=== PATIENT | female | born 1965 | race Caucasian/White ===

== ENCOUNTER 2024-05-24 10:16 | Emergency (ER) | payer BC, OTHER, SELFPAY ==
[2024-05-24 10:17] VITALS: BMI 23.4
[2024-05-24 10:34] VITALS: BP 190/130
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
[2024-05-24] MEDS: PERCOCET 5/325 2 TABLET PO (11:35)
[2024-05-24 13:29] VITALS: BP 207/108
[2024-05-24] MEDS: ZOFRAN 4 MG IV (13:41)
[2024-05-24] MEDS: TRANDATE 10 MG IV (13:41)
[2024-05-24 13:51] LABS: % Basophils 0.8 % (0-2); % Eosinophils 1.1 % (0-6); % Immature Granulocytes 0.5 % (0-0.5); % Lymphocytes 21.9 % (20.5-51.1); % Monocytes 10.3 % (1.7-9.3); % Neutrophils 65.4 % (42.2-75.2); Absolute Basophils 0.1 10^3/uL (0-0.2); Absolute Eosinophils 0.1 10^3/uL (0-0.7); Absolute Lymphocytes 1.4 10^3/uL (1.2-3.4); Absolute Monocytes 0.7 10^3/uL (0.1-0.6); Absolute Neutrophils 4.3 10^3/uL (1.4-6.5); Hematocrit 44.4 % (37.0-47.0); Hemoglobin 14.7 g/dL (12.0-16.0); Mean Corp Hgb Conc. 33.1 g/dL (33.0-37.0); Mean Corpuscular Hgb 32.5 pg (27.0-31.0); Mean Platelet Volume 9.4 fL (7.4-10.4); Nucleated Red Blood Cells % 0 %; Platelet Count 271 10^3/uL (130-400); Red Blood Cell Count 4.53 10^6/uL (4.20-5.40); Red Cell Dist. Width 13.3 % (11.5-14.5); White Blood Cell Count 6.5 10^3/uL (4.8-10.8)
[2024-05-24 14:00] VITALS: BP 168/93
[2024-05-24 14:03] LABS: Blood Urea Nitrogen 15 mg/dl (7-17); Calcium 9.5 mg/dl (8.4-10.2); Carbon Dioxide 32 mmol/L (22-30); Chloride 98 mmol/L (98-107); Estimated Creatinine Clearance 80 ml/min; Glucose 93 mg/dl (70-99); Potassium 3.9 mmol/L (3.5-5.1); Sodium 138 mmol/L (135-145); eGFR > 60.00
[2024-05-24 14:53] VITALS: BP 184/109
[2024-05-24] MEDS: APRESOLINE 10 MG IV (15:04)
[2024-05-24 15:38] VITALS: BP 171/90
[2024-05-24 16:30] VITALS: BP 178/97
== END 2024-05-24 17:08 | disposition home or self-care (01) ==
LOC: EMR 10:16
PROVIDERS: EMERGENCY PHYSICIAN Emergency Medicine
DX: S42.021A Displaced fracture of shaft of right clavicle, initial encounter for closed fracture (principal); V00.831A Fall from motorized mobility scooter, initial encounter; R03.0 Elevated blood-pressure reading, without diagnosis of hypertension
CPT/HCPCS: 99285; 96374; 96375 ×2; 71046; 73000; 73090; 73564; 80048; 85025; 93005

== ENCOUNTER 2024-05-26 06:18 | Day surgery (SDC) | payer OTHER, SELFPAY ==
--- NOTE | 2024-05-25 16:48 | PTCARENOTE ---
Abnormal preop ECG done on 05/24/24 was reviewed by : no actions requested.
[2024-05-26] VITALS (9 sets, daily range): BP systolic 150–207; BP diastolic 92–122; BMI 23.3
[2024-05-26] MEDS: TYLENOL 1000 MG PO (10:06)
[2024-05-26] MEDS: TRANSDERM-SCOP 1 PATCH TRANSDERM (10:06)
[2024-05-26] MEDS: CELEBREX 200 MG PO (10:07)
--- NOTE | 2024-05-26 13:17 | SUR.PHASEI ---
Lunch relief, pt alert, awake, awaiting SDS pickup lip care given nohemi ice chips well
[2024-05-26] MEDS: ROXICODONE 5 MG PO (14:18)
== END 2024-05-26 14:55 | disposition home or self-care (01) ==
LOC: SDS 06:18
PROVIDERS: ATTENDING PHYSICIAN Orthopaedic Surgery Hand Surgery
DX: S42.021A Displaced fracture of shaft of right clavicle, initial encounter for closed fracture (principal); X58.XXXA Exposure to other specified factors, initial encounter
CPT/HCPCS: 23515; 73000; 76000; C1713

== ENCOUNTER → 2024-06-13 13:23 | Outpatient (REF) | payer OTHER, SELFPAY | LOC: MRI 13:23 | PROVIDERS: ATTENDING PHYSICIAN Student in an Organized Health Care Education/Training Program; FAMILY PHYSICIAN Internal Medicine | DX: M25.561 Pain in right knee (principal) | CPT/HCPCS: 73721 ==

== ENCOUNTER 2024-07-23 09:15 | Outpatient (RCR) | payer OTHER, SELFPAY | END 2024-07-23 23:59 | disposition home or self-care (01) | LOC: RPT 09:15 | PROVIDERS: ATTENDING PHYSICIAN Orthopaedic Surgery Hand Surgery; FAMILY PHYSICIAN Physician Assistant | DX: S42.001D Fracture of unspecified part of right clavicle, subsequent encounter for fracture with routine healing (principal); M25.511 Pain in right shoulder; Z73.6 Limitation of activities due to disability | CPT/HCPCS: 97010; 97110; 97140; 97162 ==

== ENCOUNTER 2024-08-20 09:07 | Outpatient (RCR) | payer OTHER, SELFPAY | END 2024-08-20 23:59 | disposition home or self-care (01) | LOC: RPT 09:07 | PROVIDERS: ATTENDING PHYSICIAN Orthopaedic Surgery Hand Surgery; FAMILY PHYSICIAN Physician Assistant | DX: Z47.89 Encounter for other orthopedic aftercare (principal); S42.001D Fracture of unspecified part of right clavicle, subsequent encounter for fracture with routine healing (principal); M17.11 Unilateral primary osteoarthritis, right knee; M25.511 Pain in right shoulder; Z73.6 Limitation of activities due to disability; M62.81 Muscle weakness (generalized) | CPT/HCPCS: 97010; 97110; 97140 ==

== ENCOUNTER 2024-09-20 09:08 | Outpatient (RCR) | payer OTHER, SELFPAY | END 2024-09-20 23:59 | disposition home or self-care (01) | LOC: RPT 09:08 | PROVIDERS: ATTENDING PHYSICIAN Orthopaedic Surgery Hand Surgery; FAMILY PHYSICIAN Physician Assistant | DX: Z47.89 Encounter for other orthopedic aftercare (principal); M17.11 Unilateral primary osteoarthritis, right knee; Z73.6 Limitation of activities due to disability; M62.81 Muscle weakness (generalized); S42.001D Fracture of unspecified part of right clavicle, subsequent encounter for fracture with routine healing; M25.511 Pain in right shoulder | CPT/HCPCS: 97010; 97110; 97140 ==

== ENCOUNTER 2024-10-14 14:06 | Outpatient (RCR) | payer SELFPAY | END 2024-10-14 23:59 | disposition home or self-care (01) | LOC: RPT 14:06 | PROVIDERS: ATTENDING PHYSICIAN Orthopaedic Surgery Hand Surgery; FAMILY PHYSICIAN Physician Assistant | DX: Z47.89 Encounter for other orthopedic aftercare (principal); M17.11 Unilateral primary osteoarthritis, right knee; Z73.6 Limitation of activities due to disability | CPT/HCPCS: 97010; 97110; 97140 ==

== ENCOUNTER 2024-11-18 11:16 | Outpatient (RCR) | payer SELFPAY | END 2024-11-18 23:59 | disposition home or self-care (01) | LOC: RPT 11:16 | PROVIDERS: ATTENDING PHYSICIAN Orthopaedic Surgery Hand Surgery; FAMILY PHYSICIAN Physician Assistant | DX: M17.11 Unilateral primary osteoarthritis, right knee (principal); Z47.89 Encounter for other orthopedic aftercare; Z73.6 Limitation of activities due to disability | CPT/HCPCS: 97110; 97140 ==

== ENCOUNTER 2024-12-02 08:27 | Outpatient (RCR) | payer SELFPAY | END 2024-12-02 23:59 | disposition home or self-care (01) | LOC: RPT 08:27 | PROVIDERS: ATTENDING PHYSICIAN Orthopaedic Surgery Hand Surgery; FAMILY PHYSICIAN Physician Assistant | DX: Z47.89 Encounter for other orthopedic aftercare (principal); M17.11 Unilateral primary osteoarthritis, right knee (principal); Z73.6 Limitation of activities due to disability | CPT/HCPCS: 97110 ==

== ENCOUNTER → 2025-01-17 15:05 | Outpatient (REF) | payer OTHER, SELFPAY | LOC: HWRAD 15:05 | PROVIDERS: ATTENDING PHYSICIAN Family Medicine; FAMILY PHYSICIAN Family Medicine | DX: E06.3 Autoimmune thyroiditis (principal) | CPT/HCPCS: 76536 ==